=== PATIENT | male | born 1990 | race Caucasian/White ===

== ENCOUNTER 2024-04-30 19:04 | Emergency (ER) | payer OTHER ==
[2024-04-30] MEDS: Lidocaine 1% 10 ML MDV INJECT ONE (19:48)
[2024-04-30] MEDS: Lidocaine 1% 10 ML MDV ONE (19:48)
[2024-04-30] MEDS: Diphtheria,Pertussis(Acell),Tetanus Vaccine 0.5 ML Syringe IM ONE (20:17)
== END 2024-04-30 20:18 | disposition home or self-care (01) ==
LOC: JD.ED 19:04
DX: S61.211A Laceration without foreign body of left index finger without damage to nail, initial encounter (principal); Z23 Encounter for immunization; W26.8XXA Contact with other sharp object(s), not elsewhere classified, initial encounter
CPT/HCPCS: 12001; 90471; 90715; 99282-25; J3490